=== PATIENT | female | born 2000 | race Caucasian/White ===

== ENCOUNTER 2022-10-26 16:09 | Outpatient (CLI) | payer OTHER, SELFPAY ==
[2022-10-26 23:54] LABS: Chlamydia DNA Amplified* NOT DETECTED (No Detected); GC DNA Amplified* NOT DETECTED (No Detected)
== END 2022-10-26 16:10 | disposition home or self-care (01) ==
LOC: FRMREF 16:10
PROVIDERS: PCP Physician Assistant Medical; Visit Provider Family Medicine
DX: Z11.3 Encounter for screening for infections with a predominantly sexual mode of transmission (principal)
CPT/HCPCS: 87491; 87591

== ENCOUNTER 2024-01-21 10:46 | Outpatient (CLI) | payer OTHER, SELFPAY ==
[2024-01-21 23:45] LABS: Chlamydia DNA Amplified* NOT DETECTED (No Detected); GC DNA Amplified* NOT DETECTED (No Detected)
== END 2024-01-21 10:47 | disposition home or self-care (01) ==
PROVIDERS: PCP Family Medicine; Visit Provider Family Medicine
DX: Z79.899 Other long term (current) drug therapy (principal); Z12.4 Encounter for screening for malignant neoplasm of cervix; Z11.3 Encounter for screening for infections with a predominantly sexual mode of transmission
CPT/HCPCS: 80053; 87491; 87591; 87624; 87625; 88141; 88142

== ENCOUNTER 2025-01-07 13:00 | Outpatient (CLI) | payer OTHER, SELFPAY | END 2025-01-07 13:01 | disposition home or self-care (01) | LOC: FRMREF 13:00 | PROVIDERS: PCP Family Medicine; Visit Provider Family Medicine | DX: Z79.899 Other long term (current) drug therapy (principal) | CPT/HCPCS: 80053 ==